=== PATIENT | female | born 1935 | race Two or more races ===

== ENCOUNTER 2018-09-06 09:00 | Inpatient (IN) | payer OTHER ==
[~2018-09-06] VITALS: Ht 160 cm; Wt 57.6 kg
[~2018-09-06 09:00] MED LIST: CELE100C PO; HYDR-3974 PO; LATA2.5D7 EACHEYE; LISI-603 PO; TRAV5DRO EACHEYE
--- NOTE | 2018-09-06 09:13 | NUR ---
BIB SELF C/O NECK PAIN, AND LEFT HAND SWELLING x 2 DAYS. TO ER BED 7, HOOKED TO MONITOR, AWAITING MD CALLES.
--- NOTE | 2018-09-06 09:15 | NUR ---
DR. CANDELARIO AT BEDSIDE FOR EVAL.
[2018-09-06] MEDS ORDERED: TETRACAINE HCL/PF 0.5% UD 2 ML BOTTLE ONE (09:26)
[2018-09-06] MEDS ORDERED: FLUORESCEIN SODIUM OPHTH 1 EA STRIP ONE (09:27)
[2018-09-06] MEDS ORDERED: MORPHINE SULFATE INJ 4 MG/ML DISP.SYRIN ONE ×2 (09:28→12:41)
[2018-09-06] MEDS ORDERED: ONDANSETRON HCL/PF 4 MG/2 ML VIAL ONE (09:29)
[2018-09-06] MEDS ORDERED: ONDANSETRON HCL/PF 4 MG/2 ML VIAL IVP ONE (09:30)
[2018-09-06] MEDS ORDERED: TETRACAINE HCL/PF 0.5% UD 2 ML BOTTLE OP ONE (09:30)
[2018-09-06] MEDS ORDERED: MORPHINE SULFATE INJ 2 MG/ML DISP.SYRIN IV ONE ×2 (09:30→12:30)
--- NOTE | 2018-09-06 09:32 | NUR ---
LABS DRAWNED AND SENT TO LAB. AWAITING RESULTS.
--- NOTE | 2018-09-06 09:42 | NUR ---
STOCK ANALYST AT BEDSIDE
--- NOTE | 2018-09-06 09:47 | NUR ---
ONGOING DUPLEX VENOUS OF L UPPER EXTREMITY
[2018-09-06 09:51] LABS: BASOPHILS % (AUTO) 0.5 % (0.0-2.0); EOSINOPHILS % (AUTO) 1.2 % (0.0-6.0); HEMATOCRIT 41 % (33-45); HEMOGLOBIN 14.2 g/dL (11.5-14.8); LYMPHOCYTES # (AUTO) 1.3 /CMM (0.8-4.8); LYMPHOCYTES % (AUTO) 17.3 % (20.0-44.0); MEAN CORPUSCULAR HGB CONC 35 g/dl (31.0-36.0); MEAN CORPUSCULAR VOLUME 93 fL (82-100); MONOCYTES # (AUTO) 0.8 /CMM (0.1-1.30); MONOCYTES % (AUTO) 10.7 % (2.0-12.0); NEUTROPHILS # (AUTO) 5.4 /CMM (1.8-8.9); NEUTROPHILS % (AUTO) 70.3 % (43.0-81.0); PLATELET COUNT (AUTO) 288 /CMM (150-450); RED BLOOD CELL COUNT(AUTO) 4.44 MIL/uL (4.0-5.2); WHITE BLOOD COUNT (AUTO) 7.6 K/uL (4.3-11.0)
[2018-09-06 09:58] LABS: CALCIUM, SERUM 9.6 mg/dL (8.5-10.1); CARBON DIOXIDE 25 mmol/L (21-32); CHLORIDE 104 mmol/L (98-107); CREATININE 0.7 mg/dL (0.6-1.3); GLUCOSE 79 mg/dL (74-106); POTASSIUM 3.8 mmol/L (3.5-5.1); SODIUM SERUM 138 mmol/L (136-145); UREA NITROGEN, BLOOD 15 mg/dL (7-18)
[2018-09-06 10:03] LABS: ALANINE AMINOTRANSFERASE 18 U/L (12-78); ALBUMIN 3.6 g/dL (3.4-5.0); ALKALINE PHOSPHATASE 92 U/L (46-116); ASPARTATE AMINOTRANSFERASE 15 U/L (15-37); BILIRUBIN,DIRECT 0.1 mg/dL (0.0-0.2); BILIRUBIN,TOTAL 0.4 mg/dL (0.2-1.0); TOTAL PROTEIN, SERUM 8.2 g/dL (6.4-8.2)
--- NOTE | 2018-09-06 10:19 | NUR ---
URINE SAMPLE SENT TO LAB
[2018-09-06 10:24] LABS: APPEARANCE,URINE Clear (CLEAR); BILIRUBIN,URINE Negative (NEGATIVE); BLOOD, URINE Negative Ery/uL (NEGATIVE); COLOR,URINE Yellow (YELLOW); KETONES,URINE Negative (NEGATIVE); LEUKOCYTE ESTERASE ,URINE Negative (NEGATIVE); NITRITE, URINE Negative (NEGATIVE); PROTEIN,URINE Negative (NEGATIVE); UGLUCOSE Negative (NEGATIVE); UROBILINOGEN,URINE 0.2 EU/dL (0.2)
[2018-09-06] MEDS ORDERED: CT SWABBABLE VALVE TRANS SET 1 EA INFUS.SET MC ONE (10:41)
[2018-09-06] MEDS ORDERED: IOHEXOL-350 100 ML VIAL IV ONE (10:41)
[2018-09-06] MEDS ORDERED: IV NS 0.9% 250 ML IV ONE (10:41)
--- NOTE | 2018-09-06 10:49 | NUR ---
PT IS WHEELD TO CT SCAN VIA [facility].
[2018-09-06] MEDS ORDERED: PILOCARPINE 2% OPTH DROP 15 ML BOTTLE LEFTEYE ONE (11:00)
[2018-09-06] MEDS ORDERED: acetaZOLAMIDE 250 MG TABLET PO ONE (11:00)
[2018-09-06] MEDS ORDERED: TIMOLOL 0.5% SOLN OPHTH 5 ML BOTTLE OP ONE (11:00)
[2018-09-06] MEDS ORDERED: BIMA2.5D5 EACHEYE (11:34)
[2018-09-06] MEDS ORDERED: DORZ10DR10 EACHEYE (11:34)
[2018-09-06] MEDS ORDERED: TIMO5DRO35 EACHEYE (11:34)
[2018-09-06] MEDS ORDERED: BRIM5DRO3 EACHEYE (11:34)
[2018-09-06] MEDS ORDERED: PRED5DRO16 RIGHTEYE (11:35)
[2018-09-06] MEDS ORDERED: CHOL100040 PO (11:35)
--- NOTE | 2018-09-06 13:53 | NUR ---
PT IN BED ASLEEP BUT STILL COMPLAINS OF L NECK PAIN UPON MOVEMENT. WILL CONTINUE TO MONITOR
--- NOTE | 2018-09-06 15:20 | NUR ---
PT SLEEPING COMFORTABLY IN BED, WILL CONTINUE TO MONITOR
--- NOTE | 2018-09-06 17:24 | NUR ---
DINNER TRAY SERVED, TOLERATING PO WELL
--- NOTE | 2018-09-06 17:50 | NUR ---
INFORMED MD THAT PT C/O 05/17 L NECK PAIN, RECEIVED VERBAL ORDER OF TORADOL 15MG IV.
[2018-09-06] MEDS ORDERED: KETOROLAC TROMETHAMINE 15 MG/ML VIAL ONE (17:51)
--- NOTE | 2018-09-06 17:54 | NUR ---
HCP REP MINERVA STATES WILL LOOK FOR BED FOR THIS PATIENT AT [facility] AND CALL BACK WITH UPDATE
[2018-09-06] MEDS ORDERED: KETOROLAC TROMETHAMINE INJ 30 MG/ML VIAL IV ONE (18:00)
--- NOTE | 2018-09-06 19:18 | NUR ---
REPORT GIVEN TO LEROY MORALES FOR JARRED
--- NOTE | 2018-09-06 19:20 | NUR ---
Assumed care from ANDREW Josue. Pt is resting comfortably in bed, dozes off in between. No new complaint. Pending transfer to [facility], will follow up with cm - [phone].
--- NOTE | 2018-09-06 19:29 | NUR ---
HCP PHONE NUMBER: [phone] SPOKE TO ARTUR REGARDING PT TRANSFER INFORMATION. AWAITING CALL BACK FROM MINERVA
--- NOTE | 2018-09-06 20:45 | NUR ---
Pt is asleep, arousable. Awaiting transfer to [facility].
--- NOTE | 2018-09-06 20:53 | NUR ---
HCP WAS CONTACTED REGARDING PT TRANFER INFORMATION. AWAITING CALL BACK FROM LIMITED RADIOLOGY TECHNICIAN MINERVA REGARDING TRANSFER INFORMATION
--- NOTE | 2018-09-06 21:06 | NUR ---
SPOKE WITH DR ALMENDAREZ, PT JEFFREY TO BE ADMITTED TO PANEL AT [facility].
--- NOTE | 2018-09-06 21:47 | NUR ---
REPORT GIVEN TO ANDREW ALVAREZ FOR JARRED.
--- NOTE | 2018-09-06 22:10 | NUR ---
RN MS ADMITTING NOTES RECEIVED PT FROM ER VIA [facility] ACCOMPANIED BY EMT. PT AWAKE, ALERT ORIENTED X4, BREATHING EVEN AND UNLABORED ON ROOM AIR, NO SOB NOTED. COMPLAINING OF SHARP NECK PAIN 04/17. IV ACCESS ON THE LEFT AC 20G. SKIN INTACT. BED IN LOWEST LOCKED POSITION, CALL LIGHT WITHIN REACH AT ALL TIMES, WILL CONTINUE TO MONITOR.
[2018-09-06] MEDS ORDERED: ZOLPIDEM TARTRATE 5 MG TABLET PO PRN (23:00)
[2018-09-06] MEDS ORDERED: PANTOPRAZOLE 40 MG TABLET.DR PO ONE (23:00)
[2018-09-06] MEDS ORDERED: ONDANSETRON HCL/PF 4 MG/2 ML VIAL IVP PRN (23:00)
[2018-09-06] MEDS ORDERED: CELECOXIB 100 MG CAPSULE PO ONE (23:00)
[2018-09-06] MEDS ORDERED: MAGNESIUM HYDROXIDE 30 ML UDC PO PRN (23:00)
[2018-09-06] MEDS ORDERED: MAG HYDROX/AL HYDROX/SIMETH 30 ML UDC PO PRN (23:00)
[2018-09-06] MEDS ORDERED: MORPHINE SULFATE INJ 2 MG/ML DISP.SYRIN IV PRN (23:00)
[2018-09-06] MEDS ORDERED: Z GUARD REMEDY 2 OZ OINT TP PRN (23:00)
[2018-09-06] MEDS ORDERED: ACETAMINOPHEN 325 MG TABLET PO PRN (23:00)
[2018-09-06] MEDS: HYDROCODONE/APAP 5/325MG 1 EACH TABLET PO PRN (23:11)
[2018-09-07] MEDS ORDERED: DEXAMETHASONE SOD PHOSPHATE 10 MG/ML VIAL IV ONE
[2018-09-07] MEDS ORDERED: HYDROMORPHONE 1 MG/1 ML DISP.SYRIN IV PRN
--- NOTE | 2018-09-07 06:11 | NUR ---
RN MS CLOSING NOTES PT REMAINS IN BED SLEEPING, EASILY AROUSED TO NAME CALL OR TOUCH, BREATHING EVEN AND UNLABORED ON ROOM AIR, NO SOB NOTED. NO COMPLAINT OF PAIN OR DISCOMFORT AT THIS TIME. IV ACCESS ON THE LEFT AC 20G SL, PATENT AND FLUSHING. SKIN INTACT. ALL NEEDS MET. BED IN LOWEST LOCKED POSITION, CALL LIGHT WITHIN REACH AT ALL TIMES, WILL ENDORSE TO DAY NURSE FOR JARRED.
--- NOTE | 2018-09-07 06:57 | NUR ---
TEXTED DR. CASANOVA FOR MRI APPROVAL.
--- NOTE | 2018-09-07 07:30 | NUR ---
ANDREW MS CLOSING NOTES RECEIVED PT IN BED SLEEPING AND EASILY AROUSED TO NAME CALL OR TOUCH. BREATHING EVEN AND UNLABORED ON ROOM AIR, WTIH NO SOB OR ACUTE DISTRESS NOTED. NO COMPLAINTS OF PAIN OR DISCOMFORT AT THIS TIME. IV ACCESS ON THE LEFT AC 20G SL, INTACT AND PATENT. BED IN LOWEST LOCKED POSITION. CALL LIGHT WITHIN REACH. WILL CONTINUE TO MONITOR. Addendum: 09/07/18 at 3835 by JOHNNY RAMIREZ RN OPENING NOTES
[2018-09-07 07:31] LABS: BASOPHILS % (AUTO) 0.3 % (0.0-2.0); EOSINOPHILS % (AUTO) 0.1 % (0.0-6.0); HEMATOCRIT 40 % (33-45); HEMOGLOBIN 13.4 g/dL (11.5-14.8); LYMPHOCYTES # (AUTO) 0.4 /CMM (0.8-4.8); LYMPHOCYTES % (AUTO) 7.5 % (20.0-44.0); MEAN CORPUSCULAR HGB CONC 34 g/dl (31.0-36.0); MEAN CORPUSCULAR VOLUME 93 fL (82-100); MONOCYTES # (AUTO) 0.1 /CMM (0.1-1.30); MONOCYTES % (AUTO) 1.3 % (2.0-12.0); NEUTROPHILS # (AUTO) 4.9 /CMM (1.8-8.9); NEUTROPHILS % (AUTO) 90.8 % (43.0-81.0); PLATELET COUNT (AUTO) 262 /CMM (150-450); RED BLOOD CELL COUNT(AUTO) 4.23 MIL/uL (4.0-5.2); WHITE BLOOD COUNT (AUTO) 5.3 K/uL (4.3-11.0)
[2018-09-07 07:42] LABS: CALCIUM, SERUM 9.6 mg/dL (8.5-10.1); CARBON DIOXIDE 22 mmol/L (21-32); CHLORIDE 104 mmol/L (98-107); CREATININE 1.1 mg/dL (0.6-1.3); GLUCOSE 138 mg/dL (74-106); MAGNESIUM 2.3 mg/dL (1.8-2.4); PHOSPHORUS 3.8 mg/dL (2.5-4.9); POTASSIUM 4.2 mmol/L (3.5-5.1); SODIUM SERUM 136 mmol/L (136-145); UREA NITROGEN, BLOOD 22 mg/dL (7-18)
[2018-09-07 08:00] VITALS: BP 124/52
[2018-09-07] MEDS: PANTOPRAZOLE 40 MG TABLET.DR PO SCH (08:35)
[2018-09-07] MEDS: DOCUSATE SODIUM 100 MG CAPSULE PO SCH ×2 (08:35→17:20)
[2018-09-07] MEDS: CHOLECALCIFEROL (VITAMIN D 3) 400 UNIT TABLET PO SCH (08:35)
[2018-09-07] MEDS: CELECOXIB 100 MG CAPSULE PO SCH (08:36)
[2018-09-07] MEDS ORDERED: HYDROMORPHONE INJ 0.5 MG/0.5 ML SYRINGE IV PRN (09:00)
[2018-09-07 09:01] LABS: CHOLESTEROL 187 mg/dL (<200); HDL CHOLESTEROL 57 mg/dL (40-60); LDL 111 mg/dL (0-99); TRIGLYCERIDES 88 mg/dL (30-150)
[2018-09-07 16:00] VITALS: BP 137/62
[2018-09-07] MEDS: DORZOLAMIDE OPTH 2% 10 ML BOTTLE EACHEYE SCH ×2 (16:26→21:52)
[2018-09-07] MEDS: prednisoLONE ACET 1% OPHT DROP 5 ML BOTTLE RIGHTEYE SCH ×2 (17:21→21:52)
--- NOTE | 2018-09-07 18:30 | NUR ---
RN MS CLOSING NOTES PT AOX3 WITH TIMES OF CONFUSION IN BED RESTING AND WATCHING TV. BREATHING EVEN AND UNLABORED ON ROOM AIR, WTIH NO SOB OR ACUTE DISTRESS NOTED. NO COMPLAINTS OF PAIN OR DISCOMFORT AT THIS TIME. IV ACCESS ON THE LEFT AC 20G SL, INTACT AND PATENT. BED IN LOWEST LOCKED POSITION. PT BRP WITH ASSIST. PENDING MRI CSPINE W/O CONTRAST. CALL LIGHT WITHIN REACH. WILL CONTINUE TO MONITOR.
--- NOTE | 2018-09-07 19:30 | NUR ---
MS MERVAT INITIAL NOTES, SEEN PT IN HER ROOM LYING DOWN AWAKE AND ALERT SEEMS UPSET AND TELLING ME A LOT OF THING THAT'S WHY SHE'S UPSET. AFTER I SPOKE TO HER SHE CALMED DOWN AND SAYING "THANK YOU FOR LISTENING TO ME. NO SIGNS OF ANY ACUTE DISTRESS NOTED IN ROOM AIR , NO SOB NOTED. 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 SHE ALSO COMPLAINING OF PAIN ON HER NECK , VITAL SIGNS FF BP 151/64, PULSE 80, RESP 18 TEMP 97.6 AND O2 SAT 97% IN ROOM AIR. RE-ORIENTED HER REGARDING HER CALL LIGHT AND ENCOURAGE TO USED IT IF SHE NEEDS SOME HELP OR ASSIST. WILL CONTINUE MONITORING.
[2018-09-07 20:29] VITALS: BP 151/64
[2018-09-07] MEDS: HYDROCODONE/APAP 5/325MG 1 EACH TABLET PO PRN (20:30)
--- NOTE | 2018-09-07 20:30 | NUR ---
MS MERVAT NOTES' C/O NECK PAIN 01/15 NORCO TABLET GIVEN ORDERED. KEPT HER WARM AND COMFORTABLE AT ALL TIMES. WILL CONTINUE MONITORING. PLACE CALL LIGHT AT REACH.
--- NOTE | 2018-09-07 21:57 | NUR ---
MS MERVAT NOTES AMBIEN 5 MG PO GIVEN ORDERED PER PT REQUESTED. EDUCATE PT REGARDING SIDE EFFECT AND PT UNDERSTOOD WELL. BED ALARM SET FOR SAFETY. WILL CONTINUE MONITORING. PLACE CALL LIGHT AT REACH.
[2018-09-07] MEDS ORDERED: BIMATOPROST 2.5 ML DROPS OP SCH (22:00)
[2018-09-07] MEDS ORDERED: DORZOLAMIDE OPTH 2% 10 ML BOTTLE EACHEYE SCH (22:00)
[2018-09-07] MEDS ORDERED: prednisoLONE ACET 1% OPHT DROP 5 ML BOTTLE RIGHTEYE SCH (22:00)
[2018-09-07] MEDS ORDERED: LATANOPROST EYE DROP 0.005% 2.5 ML BOTTLE EACHEYE SCH (22:00)
--- NOTE | 2018-09-08 01:04 | NUR ---
CASH APPLICATION REPRESENTATIVE NOTES PT SLEEPING COMFORTABLY IN BED WITHOUT ANY ACUTE DISTRESS NOTED, BREATHING EVEN AND NON-LABORED, KEPT HER WARM AND COMFORTABLE AT ALL TIMES. PLACE CALL LIGHT AT REACH.
--- NOTE | 2018-09-08 07:20 | NUR ---
RN OPENING NOTES PT RESTING IN BED. NO COMPLAINTS OF PAIN, SOB OR DISTRESS AT THIS TIME. PT HAS A LEFT AC #20 INTACT AND PATIENT. PT "WAITING TO SEE A DOCTOR". WILL FOLLOW UP. SAFETY PRECAUTIONS IN PLACE, BED IN LOWEST LOCKED POSITION, X2 SIDE RAILS UP AND CALL LIGHT WITHIN REACH. WILL CONTINUE TO MONITOR.
--- NOTE | 2018-09-08 07:21 | NUR ---
MS TOOL POLISHING MACHINE OPERATOR CLOSING NOTES PT REMAINS SLEEPING COMFORTABLY IN BED WITHOUT ANY ACUTE DISTRESS NOTED. ALL DUE MEDS GIVEN. SLEPT WELL AFTER AMBIEN GIVEN. REFUSED THE HAVE THE BED ALARM SET FOR SAFETY EVEN I EXPLAINED TO HER THE PURPOSE OF IT. KEPT HER WARM AND COMFORTABLE AT ALL TIMES. PLACE CALL LIGHT AT REACH. ENDORSE TO AM NURSE FOR CONTINUITY OF CARE.
[2018-09-08] MEDS: PANTOPRAZOLE 40 MG TABLET.DR PO SCH (07:30)
[2018-09-08] MEDS: DORZOLAMIDE OPTH 2% 10 ML BOTTLE EACHEYE SCH (08:02)
[2018-09-08] MEDS: prednisoLONE ACET 1% OPHT DROP 5 ML BOTTLE RIGHTEYE SCH (08:02)
[2018-09-08] MEDS: DOCUSATE SODIUM 100 MG CAPSULE PO SCH (09:00)
[2018-09-08] MEDS: CELECOXIB 100 MG CAPSULE PO SCH (09:00)
[2018-09-08] MEDS: CHOLECALCIFEROL (VITAMIN D 3) 400 UNIT TABLET PO SCH (09:00)
--- NOTE | 2018-09-08 10:21 | NUR ---
RN NOTES CALLED FOR PT EVAL AND CASE MANAGEMENT PER DR MAYA.
--- NOTE | 2018-09-08 12:10 | NUR ---
PHARMACY ORDER ENTRY TECHNICIAN NOTES PT IN STABLE CONDITION. PT STATES THAT SHE "REALLY WANTS TO GO HOME". ALL PATIENT BELONGINGS ACCOUNTED FOR AND TAKEN HOME WITH PATIENT. IV AND ID WRIST BAND REMOVED. PT ASSISTED OFF OF UNIT VIA WHEELCHAIR. PT LEFT UNIT @1210 AND WAS ESCORTED TO [facility]. ALL DISCHARGE PAPERWORK SIGNED AND COPIED. PATIENT GIVEN COPIES OF DISCHARGE PAPERWORK AND ENCOURAGED TO FOLLOW UP WITHIN 1-2 WEEKS WITH HER PRIMARY CARE PHYSICIAN.
== END 2018-09-08 12:30 | disposition home health service (06) | DRG 74 ==
LOC: ER 09:01 → MED 22:16
PROVIDERS: ADMIT Nurse Practitioner Acute Care; ATTEND Internal Medicine
DX: M54.12 Radiculopathy, cervical region (principal); I10 Essential (primary) hypertension; H40.9 Unspecified glaucoma; Z90.710 Acquired absence of both cervix and uterus
CPT/HCPCS: 36415; 71045-TC; 71260-TC; 80048-TC; 80061-TC; 80076-TC; 81000-TC; 83735-TC; 84100-TC; 84484-TC; 85025-TC; 85730-TC; 87081-TC; 93971-TC; G0378; J1100; J1885; J2270; J2405; J7050; Q9967

== ENCOUNTER 2019-03-06 14:03 | Emergency (ER) | payer OTHER ==
[~2019-03-06] VITALS: Ht 160 cm; Wt 61.2 kg
[~2019-03-06 14:03] MED LIST changes: +BIMA2.5D5 EACHEYE; +BRIM5DRO3 EACHEYE; -CELE100C PO; +CHOL100040 PO; +DORZ10DR10 EACHEYE; -HYDR-3974 PO; -LATA2.5D7 EACHEYE; -LISI-603 PO; +PRED5DRO16 RIGHTEYE; +TIMO5DRO35 EACHEYE; -TRAV5DRO EACHEYE
--- NOTE | 2019-03-06 14:17 | NUR ---
[id number] C/O R HIP PAIN S/P GLF, R ELBOW ABRASION NOTED. -KO 100MCG FENTANYL IVP GIVEN REGISTERED PRIVATE DUTY NURSE. PT SCREAMS OUT IN PAIN WITH EVERY MOVEMENT. APPEARS ANXIOUS, BUT NO ACUTE DISTRESS. SKIN INTACT, UNABLE TO AMBULATE, VSS, RR EVEN AND UNLABORED ON RA. ON MONITOR AND READY FOR EVAL.
[2019-03-06] MEDS ORDERED: IV NS 0.9% 1,000 ML BAG IV ONE (15:00)
[2019-03-06] MEDS ORDERED: MORPHINE SULFATE INJ 2 MG/ML DISP.SYRIN IV ONE (15:00)
[2019-03-06] MEDS ORDERED: TDAP [DIPH/PERTUSSIS/TET] 0.5 ML VIAL IM ONE ×2 (15:00→15:04)
[2019-03-06] MEDS ORDERED: MORPHINE SULFATE INJ 4 MG/ML DISP.SYRIN ONE (15:04)
[2019-03-06 15:09] LABS: BASOPHILS # (AUTO) 0.1 /CMM (0.0-0.2); BASOPHILS % (AUTO) 0.9 % (0.0-2.0); EOSINOPHILS % (AUTO) 1.8 % (0.0-6.0); HEMATOCRIT 40 % (33-45); HEMOGLOBIN 13.9 g/dL (11.5-14.8); LYMPHOCYTES # (AUTO) 1.2 /CMM (0.8-4.8); LYMPHOCYTES % (AUTO) 16.7 % (20.0-44.0); MEAN CORPUSCULAR HGB CONC 35 g/dl (31.0-36.0); MEAN CORPUSCULAR VOLUME 91 fL (82-100); MONOCYTES # (AUTO) 0.4 /CMM (0.1-1.30); NEUTROPHILS # (AUTO) 5.3 /CMM (1.8-8.9); NEUTROPHILS % (AUTO) 74.6 % (43.0-81.0); PLATELET COUNT (AUTO) 230 /CMM (150-450); RED BLOOD CELL COUNT(AUTO) 4.43 MIL/uL (4.0-5.2); WHITE BLOOD COUNT (AUTO) 7.1 K/uL (4.3-11.0)
[2019-03-06 15:17] LABS: CALCIUM, SERUM 9.5 mg/dL (8.5-10.1); CARBON DIOXIDE 28 mmol/L (21-32); CHLORIDE 105 mmol/L (98-107); CREATININE 0.9 mg/dL (0.6-1.3); GLUCOSE 105 mg/dL (74-106); POTASSIUM 4.2 mmol/L (3.5-5.1); SODIUM SERUM 141 mmol/L (136-145); UREA NITROGEN, BLOOD 16 mg/dL (7-18)
[2019-03-06 15:28] LABS: ALANINE AMINOTRANSFERASE 21 U/L (12-78); ALBUMIN 3.6 g/dL (3.4-5.0); ALKALINE PHOSPHATASE 63 U/L (46-116); ASPARTATE AMINOTRANSFERASE 15 U/L (15-37); BILIRUBIN,DIRECT 0.1 mg/dL (0.0-0.2); BILIRUBIN,TOTAL 0.5 mg/dL (0.2-1.0); LIPASE 193 U/L (73-393); TOTAL PROTEIN, SERUM 7.4 g/dL (6.4-8.2)
--- NOTE | 2019-03-06 15:53 | NUR ---
CALLED [facility] TO HAVE IMAGES READ
--- NOTE | 2019-03-06 16:01 | NUR ---
PT STATES NO RELIEF FROM MORPHINE. NOTIFIED
--- NOTE | 2019-03-06 16:02 | NUR ---
CALLED [employer]. AIRCRAFT ENGINE MECHANIC SUPERVISOR DR AMBROSIO
--- NOTE | 2019-03-06 16:49 | NUR ---
CALLED [facility]. PROJECT CONTROL MANAGER WAS PAGED.
[2019-03-06] MEDS ORDERED: HYDROMORPHONE INJ 0.5 MG/0.5 ML SYRINGE IV ONE (17:00)
[2019-03-06] MEDS ORDERED: HYDROMORPHONE 1 MG/1 ML DISP.SYRIN ONE (17:01)
[2019-03-06 18:17] VITALS: BP 171/71
--- NOTE | 2019-03-06 18:21 | NUR ---
PT STILL NOT FEELING RELIEF FROM PAIN MED. NOTIFIED.
--- NOTE | 2019-03-06 18:44 | NUR ---
JAMES FRAZIER CALLED TO INFORM ME THAT PT WILL BE TRANSFERRED TO [facility] ROOM [id number] MS. CALL [phone] TO GIVE REPORT. SHE WILL ARRANGE TRANSPORTATION
--- NOTE | 2019-03-06 18:55 | NUR ---
KARIN CALLED AND SET UP TRANSPORTATION. MARTHA Huff
--- NOTE | 2019-03-06 19:20 | NUR ---
REPORT GIVEN TO MARTHA EMT UNIT 142 FOR TRANSPORT
--- NOTE | 2019-03-06 19:40 | NUR ---
REPORT GIVEN TO ANDREW HERNANDES AT [facility] FOR JARRED
== END 2019-03-06 19:40 | disposition short-term general hospital (02) ==
LOC: ER 14:09
DX: S72.141A Displaced intertrochanteric fracture of right femur, initial encounter for closed fracture (principal); S50.311A Abrasion of right elbow, initial encounter; E86.0 Dehydration; I10 Essential (primary) hypertension; Z90.49 Acquired absence of other specified parts of digestive tract; W18.39XA Other fall on same level, initial encounter; Y93.89 Activity, other specified; Y92.89 Other specified places as the place of occurrence of the external cause; Y99.8 Other external cause status
CPT/HCPCS: 36415; 71045; 73502; 80048; 80076; 83690; 84484; 85025; 85730; 87081; 90471; 90715; 93005; 96361; 96374; 96375; 99285; J1170; J2270; J7030

== ENCOUNTER 2019-09-02 11:00 | Emergency (ER) | payer OTHER ==
[~2019-09-02] VITALS: Ht 160 cm; Wt 59.9 kg
[2019-09-02] MEDS: IV NS 0.9% 500 ML BAG IV ONE (11:30)
--- NOTE | 2019-09-02 11:30 | NUR ---
GAVE MOVESHEET TO ADMITTING FOR INSURANCE AUTH
--- NOTE | 2019-09-02 11:38 | NUR ---
patient came in to the er [facility] c/o "hurting all over" s/p trip and fall going to the bathroom. On room air, breathing evenly and unlabored, connected to the monitor and pulse ox. kept comfortable, will continue to monitor accordingly.
[2019-09-02 11:42] LABS: BASOPHILS % (AUTO) 0.4 % (0.0-2.0); EOSINOPHILS % (AUTO) 0.1 % (0.0-6.0); HEMATOCRIT 47 % (33-45); HEMOGLOBIN 15.9 g/dL (11.5-14.8); MEAN CORPUSCULAR HGB CONC 34 g/dl (31.0-36.0); MEAN CORPUSCULAR VOLUME 93 fL (82-100); MONOCYTES # (AUTO) 0.6 /CMM (0.1-1.30); MONOCYTES % (AUTO) 6.5 % (2.0-12.0); NEUTROPHILS # (AUTO) 7.4 /CMM (1.8-8.9); PLATELET COUNT (AUTO) 194 /CMM (150-450); RED BLOOD CELL COUNT(AUTO) 5.04 MIL/uL (4.0-5.2)
[2019-09-02] MEDS ORDERED: LATA2.5D7 EACHEYE (11:47)
[2019-09-02] MEDS ORDERED: BRIM5DRO2 EACHEYE (11:47)
[2019-09-02 12:10] LABS: ALANINE AMINOTRANSFERASE 22 U/L (12-78); ALBUMIN 3.8 g/dL (3.4-5.0); ALKALINE PHOSPHATASE 91 U/L (46-116); ASPARTATE AMINOTRANSFERASE 27 U/L (15-37); BILIRUBIN,DIRECT 0.1 mg/dL (0.0-0.2); BILIRUBIN,TOTAL 0.7 mg/dL (0.2-1.0); CARBON DIOXIDE 25 mmol/L (21-32); CHLORIDE 101 mmol/L (98-107); CREATININE 0.7 mg/dL (0.6-1.3); GLUCOSE 101 mg/dL (74-106); POTASSIUM 3.9 mmol/L (3.5-5.1); SODIUM SERUM 138 mmol/L (136-145); TOTAL PROTEIN, SERUM 8.1 g/dL (6.4-8.2); UREA NITROGEN, BLOOD 7 mg/dL (7-18)
--- NOTE | 2019-09-02 12:27 | NUR ---
patient came back from ct
--- NOTE | 2019-09-02 13:56 | NUR ---
phone number [phone] fax # [phone] [facility]. will call back for MD to MD report.
--- NOTE | 2019-09-02 14:25 | NUR ---
FAXED CLINICALS AND FACESHEET TO HCP FACESHEET
--- NOTE | 2019-09-02 15:51 | NUR ---
TRANSFER INFO: [facility], 309-A RN FOR REPORT [phone]. [facility] ETA 1830, HCP KARIN SAMS
[2019-09-02] MEDS ORDERED: TRAMADOL HCL 50 MG TABLET ONE (15:52)
[2019-09-02] MEDS: TRAMADOL HCL 50 MG TABLET PO ONE (15:59)
--- NOTE | 2019-09-02 16:15 | NUR ---
report given to Korin MORALES for ramon.
[2019-09-02 18:46] VITALS: BP 130/83
--- NOTE | 2019-09-02 19:06 | NUR ---
patient left via gurney accompanied by 2 EMT going to [facility], in no distress.
== END 2019-09-02 19:06 ==
LOC: ER 11:03
DX: R55 Syncope and collapse (principal); I10 Essential (primary) hypertension; R41.82 Altered mental status, unspecified; Z60.2 Problems related to living alone; Z90.710 Acquired absence of both cervix and uterus; Z79.899 Other long term (current) drug therapy
CPT/HCPCS: 36415; 70450; 71045; 73521; 80048; 80076; 84484; 85025; 85730; 93005; 96360; 99285; J7040

== ENCOUNTER → 2021-08-23 | Emergency (ER) | payer OTHER ==
[~2021-08-23] VITALS: Ht 172.7 cm; Wt 67.6 kg
[~2021-08-23] MED LIST changes: -BIMA2.5D5 EACHEYE; +BRIM5DRO2 EACHEYE; -BRIM5DRO3 EACHEYE; -DORZ10DR10 EACHEYE; +LATA2.5D15 EACHEYE; +MORPHINE SULFATE INJ 2 MG/ML DISP.SYRIN IV ONE; +MORPHINE SULFATE INJ 2 MG/ML DISP.SYRIN ONE; +ONDANSETRON HCL/PF 4 MG/2 ML VIAL IVP ONE; +ONDANSETRON HCL/PF 4 MG/2 ML VIAL ONE; -PRED5DRO16 RIGHTEYE
--- NOTE | 2021-08-23 19:15 | NUR ---
[facility]ONI [address] [facility] C/O R HIP PAIN S/P GLF. PT A/OX3; FORGETFUL. TOLERATING R/A WELL WITH NO SOB. CONNECTED PT TO POX AND MONITOR.
[2021-08-23 20:04] LABS: BASOPHILS # (AUTO) 0.1 K/uL (0.0-0.2); BASOPHILS % (AUTO) 0.7 % (0.0-2.0); EOSINOPHILS % (AUTO) 2.2 % (0.0-6.0); HEMATOCRIT 40 % (33-45); HEMOGLOBIN 13.7 g/dL (11.5-14.8); LYMPHOCYTES # (AUTO) 1.9 K/uL (0.8-4.8); LYMPHOCYTES % (AUTO) 23.8 % (20.0-44.0); MEAN CORPUSCULAR HGB CONC 34 g/dl (31.0-36.0); MEAN CORPUSCULAR VOLUME 92 fL (82-100); MONOCYTES # (AUTO) 0.6 K/uL (0.1-1.30); MONOCYTES % (AUTO) 7.2 % (2.0-12.0); NEUTROPHILS # (AUTO) 5.4 K/uL (1.8-8.9); NEUTROPHILS % (AUTO) 66.1 % (43.0-81.0); PLATELET COUNT (AUTO) 242 K/uL (150-450); RED BLOOD CELL COUNT(AUTO) 4.35 MIL/uL (4.0-5.2); WHITE BLOOD COUNT (AUTO) 8.2 K/uL (4.3-11.0)
[2021-08-23 20:14] LABS: CALCIUM, SERUM 9.5 mg/dL (8.5-10.1); CREATININE 0.9 mg/dL (0.6-1.3); POTASSIUM 3.8 mmol/L (3.5-5.1)
--- NOTE | 2021-08-23 21:06 | NUR ---
PT WILL BE TRANSPORTED BACK TO FACILITY IN 1 HOUR [facility]IA [facility].
--- NOTE | 2021-08-23 22:09 | NUR ---
kalyan: [phone] [id number] [place] [address] report given to Kalyan the collection systems administrator
--- NOTE | 2021-08-23 22:55 | NUR ---
RN GAVE REPORT TO CONNIE EMT. PT DC TO [facility] VIA AMBULANCE
[2021-08-23 23:17] VITALS: BP 135/78
--- NOTE | 2021-08-23 23:27 | NUR ---
Patient discharged to home in stable condition. Written and verbal after care instructions given. Patient verbalizes understanding of instruction.IV removed. Catheter intact and site benign. Pressure and 4x4 applied to site. No bleeding noted.
== END ==
LOC: ER 19:06
DX: S70.02XA Contusion of left hip, initial encounter (principal); I10 Essential (primary) hypertension; Z98.890 Other specified postprocedural states; Z79.899 Other long term (current) drug therapy; W05.0XXA Fall from non-moving wheelchair, initial encounter; Y93.89 Activity, other specified; Y92.89 Other specified places as the place of occurrence of the external cause; Y99.8 Other external cause status
CPT/HCPCS: 36415; 71045-TC; 73502; 80048-TC; 85025-TC; 85730-TC; J2270; J2405